=== PATIENT | male | born 1965 | race Caucasian/White ===

== ENCOUNTER → 2021-02-28 | Outpatient (CLI) | payer OTHER ==
[~2021-02-28] MED LIST: ASPIR 8181 MG PO; ATROVENT-HFA12.9 GM INH; COREG6.25 MG PO; CYMBALTA30 MG PO; ENALAPRIL MALEAT5 MG PO; FLEXERIL 10 MG10 MG PO; ISOSORBIDE MONO30 MG PO; LANOXIN TAB0.125 MG PO; LASIX20 MG PO; LASIX40 MG PO; LIPITOR TAB 2020 MG PO; LISINOPRIL20 MG PO; LORTAB 7.5-3251 EACH PO; METOPROLOL TART50 MG PO; NEURONTIN 400400 MG; NEURONTIN 400400 MG PO; NITROSTAT0.4 MG SL; NORVASC 5 MG TAB5 MG PO; PANTOPRAZOLE SO40 MG PO; PLAVIX 75 MG TA75 MG PO
== END ==
LOC: HEART CORB 13:28
DX: I25.10 Atherosclerotic heart disease of native coronary artery without angina pectoris (principal); I50.22 Chronic systolic (congestive) heart failure; I25.5 Ischemic cardiomyopathy; R06.02 Shortness of breath; I08.1 Rheumatic disorders of both mitral and tricuspid valves
CPT/HCPCS: 93306